=== PATIENT | male | born 1970 | race African-American/Black ===

== ENCOUNTER 2021-07-06 06:56 | Observation (INO) ==
[2021-07-06 08:38] LABS: Basophils % 0.2 % (0.0-0.8); Eosinophils % 0.4 % (0.00-10.9); Hematocrit 40.2 VOL% (42.0-52.0); Hemoglobin 13.2 GM/DL (14.0-18.0); Immature Granulocytes % 0.5 %; Immature Granulocytes Absolute 0.03 #; Lymphocytes # 1.2 10*3/uL (1.4-4.0); Lymphocytes % 20.2 % (21.2-54.2); Mean Corpuscular HGB Conc 32.8 GM/DL (32-36); Mean Corpuscular Volume 89.9 FL (87-102); Mean Platelet Volume 9.5 FL (9.6-12.0); Monocytes % 13.2 % (1.7-12.7); Neutrophils % 65.5 % (38.7-73.9); Platelet Count 371 T/CUMM (130-400); Red Blood Count 4.47 MC/CUMM (3.8-5.5); White Blood Count 5.7 T/CUMM (4-12)
[2021-07-06 08:49] LABS: Bilirubin,Urine Negative (Negative); Blood, Urine Negative (Negative); Glucose,Urine (UA) Negative (Negative); Hyaline Casts,Urine 13 /LPF (0-3); Ketones,Urine 20 mg/dL (Negative); Mucus,Urine Occasional /LPF (Occasional); Nitrite,Urine Negative (Negative); Protein,Urine Negative; RBC,Urine 2 /HPF (0-4); Squamous Epithelial Cell,Urine Occasional /HPF (0-10); Urine Appearance CLEAR (Clear); Urine Color Yellow (Yellow); Urine Specific Gravity 1.015 (1.001-1.035)
[2021-07-06 09:16] LABS: Albumin 2.9 G/DL (3.4-5.0); Bilirubin,Total 1.1 MG/DL (0.20-1.00); Calcium 8.8 MG/DL (8.5-10.1); Potassium 3.5 MMOL/L (3.5-5.1); Total Protein 8.9 G/DL (6.4-8.2)
[2021-07-06 09:21] LABS: Platelet Estimate Normal
[2021-07-06 09:22] LABS: Anisocytosis 1+
[2021-07-06] MEDS ORDERED: ACETAMINOPHEN 325 MG TABLET PO PRN (13:37)
[2021-07-06] MEDS ORDERED: GLUCAGON 1 MG VIAL IM PRN (13:37)
[2021-07-06] MEDS ORDERED: DEXTROSE 50% 25 GM/50 ML VIAL IV PRN (13:37)
[2021-07-06] MEDS ORDERED: MELATONIN 3 MG TABLET PO PRN (14:20)
[2021-07-06] MEDS ORDERED: AZITHROMYCIN INJ 500 MG in SODIUM CHLORIDE 0.9% 250 ML IV ONE (14:20)
[2021-07-06] MEDS: ENOXAPARIN 40 MG/0.4 ML SYRINGE SUBCUT SCH (16:03)
[2021-07-06] MEDS: SODIUM CHLORIDE 0.9% 1,000 ML IV SCH (16:37)
[2021-07-06] MEDS: INSULIN LISPRO 100 UNIT/ML SUBCUT SCH ×2 (18:04→21:23)
[2021-07-06] MEDS: FAMOTIDINE 20 MG TABLET PO SCH (21:17)
[2021-07-07 05:53] LABS: Basophils % 0.4 % (0.0-0.8); Eosinophils % 0.7 % (0.00-10.9); Hemoglobin 12.3 GM/DL (14.0-18.0); Immature Granulocytes % 0.6 %; Immature Granulocytes Absolute 0.03 #; Lymphocytes # 1.3 10*3/uL (1.4-4.0); Lymphocytes % 24.1 % (21.2-54.2); Mean Corpuscular HGB Conc 33.2 GM/DL (32-36); Mean Corpuscular Volume 90.9 FL (87-102); Mean Platelet Volume 9.4 FL (9.6-12.0); Monocytes % 18.4 % (1.7-12.7); Neutrophils % 55.8 % (38.7-73.9); Platelet Count 364 T/CUMM (130-400); Red Blood Count 4.07 MC/CUMM (3.8-5.5); Red Cell Distribution Width 14.1 % (9.3-17.3); White Blood Count 5.4 T/CUMM (4-12)
[2021-07-07 06:04] LABS: Albumin 2.5 G/DL (3.4-5.0); Bilirubin,Total 0.9 MG/DL (0.20-1.00); Calcium 8.6 MG/DL (8.5-10.1); Ferritin 527.5 ng/mL (26-388); Osmolality,Calculated 275.5 MOS/KG (273-304); Potassium 4.2 MMOL/L (3.5-5.1); Total Protein 7.7 G/DL (6.4-8.2)
[2021-07-07 06:24] LABS: Hypochromasia 1+; Lymphocytes 23 % (20-55); Microcytosis 1+; Platelet Estimate Adequate; Segmented Neutrophils 64 % (50-85); Total Cells Counted 100
[2021-07-07] MEDS ORDERED: DEXAMETHASONE 4 MG/1 ML VIAL IV SCH (09:00)
[2021-07-07] MEDS ORDERED: CHOLECALCIFEROL 1,000 UNIT TABLET PO SCH (09:00)
[2021-07-07] MEDS ORDERED: ZINC GLUCONATE 50 MG TABLET PO SCH (09:00)
[2021-07-07] MEDS ORDERED: AZITHROMYCIN 250 MG TABLET PO SCH (09:00)
[2021-07-07] MEDS ORDERED: CETIRIZINE 10 MG TABLET PO SCH (09:00)
[2021-07-07] MEDS: INSULIN LISPRO 100 UNIT/ML SUBCUT SCH ×2 (09:54→13:18)
[2021-07-07] MEDS: ENOXAPARIN 40 MG/0.4 ML SYRINGE SUBCUT SCH (09:56)
[2021-07-07] MEDS: SODIUM CHLORIDE 0.9% 1,000 ML IV SCH (10:00)
[2021-07-07 12:08] VITALS: BP 133/86
[2021-07-07] MEDS ORDERED: methylPREDNISolone SOD SUC 125 MG/2 ML VIAL IM PRN (12:25)
[2021-07-07] MEDS ORDERED: CASIRIVIMAB/IMDEVIMAB 1,200 MG in SODIUM CHLORIDE 0.9% 100 ML IV ONE (12:25)
[2021-07-07] MEDS ORDERED: diphenhydrAMINE 50 MG/1 ML VIAL IV PRN ×2 (12:25)
[2021-07-07] MEDS ORDERED: ONDANSETRON 4 MG/2 ML VIAL IV PRN (12:25)
[2021-07-07] MEDS ORDERED: ONDANSETRON 4 MG TABLET PO PRN (12:25)
[2021-07-07] MEDS ORDERED: ACETAMINOPHEN 325 MG TABLET PO PRN (12:25)
[2021-07-07] MEDS ORDERED: methylPREDNISolone SOD SUC 125 MG/2 ML VIAL IV PRN (12:25)
[2021-07-07] MEDS ORDERED: diphenhydrAMINE CAP 25 MG CAPSULE PO PRN ×2 (12:25→12:31)
[2021-07-07] MEDS ORDERED: MECLIZINE 25 MG TABLET PO PRN (12:25)
[2021-07-07] MEDS: FAMOTIDINE 20 MG TABLET PO SCH (14:44)
== END 2021-07-07 16:19 | disposition home or self-care (01) ==
LOC: N.ED 06:56 → N.EDINP 13:37 → INTOOBSV 13:37 → N.3E 14:39 → N.2E 18:24
PROVIDERS: ADMIT Internal Medicine; ATTEND Internal Medicine